=== PATIENT | male | born 1950 | race Caucasian/White ===

== ENCOUNTER 2020-06-20 12:47 | Outpatient (RCR) | payer MEDICARE, OTHER | END 2020-06-21 | LOC: PT 12:47 | PROVIDERS: ATTEND Specialist | DX: M75.82 Other shoulder lesions, left shoulder (principal) ==

== ENCOUNTER 2020-07-04 13:00 | Outpatient (RCR) | payer MEDICARE, OTHER | END 2020-07-22 | LOC: PT 13:00 | PROVIDERS: ATTEND Specialist | DX: M75.82 Other shoulder lesions, left shoulder (principal) | CPT/HCPCS: 97139 ==